=== PATIENT | male | born 1955 | race Caucasian/White ===

== ENCOUNTER 2020-03-31 18:07 | Emergency (ER) | payer OTHER ==
[~2020-03-31] VITALS: Ht 22.9 cm; Wt 59.1 kg
[2020-03-31 18:08] VITALS: BP 144/87; PULSE 73; TEMP 98.3
[2020-03-31 19:15] LABS: HEMOGLOBIN 12.1 g/dl (13.5-18.0); MEAN CELL VOLUME 92 fl (80.0-100.0); MEAN CORPUSCULAR HEMOGLOBIN 32 pg (27.0-31.0); MEAN CORPUSCULAR HGB CONC 35 g/dl (33.0-37.0); MEAN PLATELET VOLUME 8.5 fl (7.4-10.4); PLATELET COUNT 1688 K/mm3 (130-400); RED BLOOD COUNT 3.78 M/mm3 (4.20-5.60); REDCELL DISTRIBUTION WIDTH-CV 15.1 % (11.5-14.5)
[2020-03-31 19:18] LABS: HEMATOCRIT 34.7 % (42.0-52.0); INR 1.1 (0.8-3.0); PROTHROMBIN TIME 11.8 SECONDS (9.7-12.8)
[2020-03-31 19:21] LABS: PARTIAL THROMBOPLASTIN TIME 35.2 SECONDS (26.0-37.0)
[2020-03-31 19:23] LABS: ALANINE AMINOTRANSFERASE 16 U/L (4-49); ALBUMIN 3.4 gm/dL (3.5-5.0); ALCOHOL(ethanol),MEDICAL 167 mg/dL; ALKALINE PHOSPHATASE 77 U/L (50-136); ANION GAP 9 mmol/L (7-16); AST,SGOT 51 U/L (15-37); BILIRUBIN,TOTAL 0.3 mg/dL (0.0-1.0); BLOOD UREA NITROGEN 4 mg/dL (9-20); CALCIUM 8.4 mg/dL (8.4-10.2); CARBON DIOXIDE 22 mmol/L (22-30); CHLORIDE 103 mmol/L (98-107); CREATININE, serum 0.55 (0.66-1.25); GLUCOSE 71 mg/dL (74-106); POTASSIUM 3.3 mmol/L (3.4-5.0); SODIUM 134 mmol/L (137-145); TOTAL PROTEIN 6.3 gm/dL (6.4-8.2)
[2020-03-31 19:34] LABS: TROPONIN-I < 0.012 ng/mL (0.000-0.035)
[2020-03-31 20:11] LABS: LYMPHOCYTE 15 % (20.0-51.0); NEUTROPHILS 77 % (42.0-75.2)
[2020-03-31 20:13] LABS: ANISOCYTOSIS 1+; PLATELET ESTIMATE INCREASED (NORMAL)
[2020-03-31] MEDS ORDERED: INCRUSE EL62.5 MCG/A IH (21:05)
== END 2020-03-31 21:35 | disposition left against medical advice (07) ==
LOC: COL.ER 18:07
PROVIDERS: Emergency Medicine
DX: S12.110A Anterior displaced Type II dens fracture, initial encounter for closed fracture (principal); I63.9 Cerebral infarction, unspecified; I65.22 Occlusion and stenosis of left carotid artery; F10.10 Alcohol abuse, uncomplicated; F17.210 Nicotine dependence, cigarettes, uncomplicated; X58.XXXA Exposure to other specified factors, initial encounter
CPT/HCPCS: J3480; J7030; Q9967